=== PATIENT | female | born 1970 | race Caucasian/White ===

== ENCOUNTER 2017-08-01 23:28 | Emergency (ER) | payer BC ==
[~2017-08-01] VITALS: Ht 154.9 cm; Wt 80.7 kg
[2017-08-01 23:54] VITALS: BP 121/79
== END 2017-08-02 00:08 | disposition left against medical advice (07) ==
LOC: EME 23:28
DX: R07.9 Chest pain, unspecified (principal); F41.9 Anxiety disorder, unspecified; F17.200 Nicotine dependence, unspecified, uncomplicated
CPT/HCPCS: 80053; 84484; 84702; 85027; 93005